=== PATIENT | female | born 1995 | race Caucasian/White ===

== ENCOUNTER 2017-04-22 19:35 | Emergency (ER) | payer OTHER ==
[2017-04-22 19:54] VITALS: BP 112/62; PULSE 83; TEMP 98.3; BMI 24.7
[2017-04-22 20:01] LABS: PH,URINE 5.5 (4.5-8); URINE APPEARANCE Clear; URINE BILIRUBIN Negative (NEGATIVE); URINE BLOOD 2+ (NEGATIVE); URINE COLOR YELLOW; URINE GLUCOSE (UA) Negative (NEGATIVE); URINE KETONE Trace (NEGATIVE); URINE LEUK ESTERASE Negative (NEGATIVE); URINE NITRITE Negative (NEGATIVE); URINE PROTEIN Negative (NEGATIVE); URINE UROBILINOGEN 0.2 (0.2-1.0)
--- NOTE | 2017-04-22 20:19 | PDOC ---
History of Present Illness - General History Source: Patient, Spouse - History of Present Illness Initial Comments: 04/22/17 20:20 21 y/o F (LMP: 8, ) with no PMHx presents to the ED with worsening vaginal pain for a few days. She states the pain does not radiate. Patient denies similar symptoms in the past. She also reports an irregular period. She denies history of trauma. Denies vaginal bleeding or discharge. She denies dysuria, hematuria. Denies nausea, vomiting. <Ronel Briones - Last Filed: 04/22/17 20:20> <Janiya Lewis - Last Filed: 04/22/17 20:39> - General Chief Complaint: Urinary Problem Stated Complaint: PAIN INSIDE VAGINA, DIFFICULTY URINATING Time Seen by Provider: 04/22/17 19:40 Past History <Ronel Briones - Last Filed: 04/22/17 20:20> - Past Medical History Other medical history: DENIES - Psycho/Social/Smoking Cessation Hx Anxiety: No Suicidal Ideation: No Smoking History: Never smoked Have you smoked in the past 12 months: No Information on smoking cessation initiated: No Hx Alcohol Use: No Drug/Substance Use Hx: No Substance Use Type: None <Janiya Lewis - Last Filed: 04/22/17 20:39> - Past Medical History Allergies/Adverse Reactions: Allergies Allergy/AdvReac Type Severity Reaction Status Date / Time No Known Allergies Allergy Verified 04/22/17 19:37 Home Medications: Ambulatory Orders Ibuprofen [Motrin -] 600 mg PO TID PRN #21 tablet 04/22/17 Review of Systems - Review of Systems Able to Perform ROS?: Yes Comments:: 04/22/17 20:20 GENERAL/CONSTITUTIONAL: No fever or chills. No weakness. HEAD, EYES, EARS, NOSE AND THROAT: No change in vision. No ear pain or discharge. No sore throat. CARDIOVASCULAR: No chest pain or shortness of breath. RESPIRATORY: No cough, wheezing, or hemoptysis. GASTROINTESTINAL: No nausea, vomiting, diarrhea or constipation. GENITOURINARY: (+) vaginal pain. No dysuria, frequency, or change in urination. MUSCULOSKELETAL: No joint or muscle swelling or pain. No neck or back pain. SKIN: No rash NEUROLOGIC: No headache, vertigo, loss of consciousness, or change in strength/ sensation. ENDOCRINE: No increased thirst. No abnormal weight change. HEMATOLOGIC/LYMPHATIC: No anemia, easy bleeding, or history of blood clots. ALLERGIC/IMMUNOLOGIC: No hives or skin allergy. <Ronel Briones - Last Filed: 04/22/17 20:20> *Physical Exam - Vital Signs Last Vital Signs Temp Pulse Resp BP Pulse Ox 98.3 F 83 16 112/62 97 04/22/17 19:38 04/22/17 19:38 04/22/17 19:38 04/22/17 19:38 04/22/17 19:38 <Ronel Briones - Last Filed: 04/22/17 20:20> - Vital Signs Last Vital Signs Temp Pulse Resp BP Pulse Ox 98.3 F 83 16 112/62 97 04/22/17 19:38 04/22/17 19:38 04/22/17 19:38 04/22/17 19:38 04/22/17 19:38 - Physical Exam Comments: GENERAL: Awake, alert, and fully oriented, in no acute distress HEAD: No signs of trauma EYES: PERRLA, EOMI, sclera anicteric, conjunctiva clear ENT: Auricles normal inspection, hearing grossly normal, nares patent, oropharynx clear without exudates. Moist mucosa NECK: Normal ROM, supple, no lymphadenopathy, JVD, or masses LUNGS: Breath sounds equal, clear to auscultation bilaterally. No wheezes, and no crackles HEART: Regular rate and rhythm, normal S1 and S2, no murmurs, rubs or gallops ABDOMEN: Soft, nontender, normoactive bowel sounds. No guarding, no rebound. No masses EXTREMITIES: Normal range of motion, no edema. No clubbing or cyanosis. No cords, erythema, or tenderness NEUROLOGICAL: Cranial nerves II through XII grossly intact. Normal speech, normal gait SKIN: Warm, Dry, normal turgor, no rashes or lesions noted. : No external lesions. Mild physiologic discharge. Cervix was mildly enlarged , erythematous, tender, with slightly ulcerated area posteriorly. Firm and tender to palpation. <Janiya Lewis - Last Filed: 04/22/17 20:39> ED Treatment Course - ADDITIONAL ORDERS Additional order review: Laboratory Results 04/22/17 04/22/17 19:43 19:43 Urine Color Yellow Urine Appearance Clear Urine pH 5.5 Ur Specific [place] >= 1.030 H Urine Protein Negative Urine Glucose (UA) Negative Urine Ketones Trace Urine Blood 2+ H Urine Nitrite Negative Urine Bilirubin Negative Urine Urobilinogen 0.2 Ur Leukocyte Esterase Negative Urine HCG, Qual Negative <Ronel Briones - Last Filed: 04/22/17 20:20> - ADDITIONAL ORDERS Additional order review: Laboratory Results 04/22/17 04/22/17 19:43 19:43 Urine Color Yellow Urine Appearance Clear Urine pH 5.5 Ur Specific [place] >= 1.030 H Urine Protein Negative Urine Glucose (UA) Negative Urine Ketones Trace Urine Blood 2+ H Urine Nitrite Negative Urine Bilirubin Negative Urine Urobilinogen 0.2 Ur Leukocyte Esterase Negative Urine HCG, Qual Negative <Janiya Lewis - Last Filed: 04/22/17 20:39> Medical Decision Making - Medical Decision Making 04/22/17 20:35 Additional history obtained during pelvic exam. Patient had a history of abnormal pap 5 years ago, had a biopsy that was reportedly normal (this was all done in [place]). She has followed up annually with her cryptologic linguist since then, no problems. I explained that her cervix is enlarged and appears abnormal. I an concerned that this may be related to the prior abnormal pap. I obtained a GC/ Chlamydia swab, however, I would be less concerned about this, more concerned that this may be a mass. I urged them to make cryptologic linguist appt as soon as possible. I gave information for all of the gynecologists in our system so that they can see who takes their insurance. Also, I gave information for [facility] clinic. <Janiya Lewis - Last Filed: 04/22/17 20:39> *DC/Admit/Observation/Transfer - Attestations Scribe Attestion: 04/22/17 20:21 Documentation prepared by Ronel Briones, acting as expert medical writer for Janiya Lewis MD. <Ronel Briones - Last Filed: 04/22/17 20:20> - Discharge Dispostion Admit: No <Janiya Lewis - Last Filed: 04/22/17 20:39> Diagnosis at time of Disposition: Vaginal pain - Discharge Dispostion Disposition: HOME Condition at time of disposition: Stable - Prescriptions Prescriptions: Ibuprofen [Motrin -] 600 mg PO TID PRN #21 tablet PRN Reason: Pain - Patient Instructions Printed Discharge Instructions: DI for Pelvic Pain Additional Instructions: Siga con el gineclogo lo antes posible. Cuando chris martha luis, mencione que fue visto en el departamento de emergencias. Amber motrin herman sea necesario para el dolor. Print Language: PERSIAN
[2017-04-22 20:26] LABS: URINE BACTERIA FEW /hpf (NEGATIVE); URINE RBC 0-2 /hpf (0-3)
== END 2017-04-22 20:32 | disposition home or self-care (01) ==
LOC: FER 19:35
DX: R10.2 Pelvic and perineal pain (principal)
CPT/HCPCS: 36415; 81003; 81015; 84703; 87491; 87591; 99281-25

== ENCOUNTER 2017-05-02 23:39 | Emergency (ER) | payer OTHER ==
[2017-05-02 23:43] VITALS: BP 115/66; PULSE 76; TEMP 98.6; BMI 24.7
--- NOTE | 2017-05-03 00:18 | PDOC ---
History of Present Illness - General Chief Complaint: Injury Stated Complaint: FALL INJURY Time Seen by Provider: 05/02/17 23:50 History Source: Patient Exam Limitations: No Limitations - History of Present Illness Initial Comments: This is a 21 yo female with h/o recently diagnosed enlarged cervix and (seen for vaginal pain in our ED) who presents with constant throbbing headache to the top of her head on both sides at 10/10 pain currently. She had a very mild headache for most of the day, but it became significantly worse suddenly at 10pm tonight. The pain is not worsened by light or noise, and does not radiate to the neck or anywhere else. She has not taken any medication for the pain. She additionally notes feeling dizzy and having difficulty balancing due to the dizziness, as well as nausea and one episode of vomiting. She notes numbness to the face, as well as chills. She denies any measured fever at home, any change in her normal mentation, focal weakness, incontinence of urine or bowel, abdominal pain, chest pain, painful urination, or other symptoms. She did measure her temperature at home about a week ago and found it to be 102.4, but states that her geotechnical engineer was not concerned about this d/t her recent diagnosis of cervicitis. She denies any chance that she may be and states her last menstrual period was on 04/11/17. She just moved to the from [place] about two months ago. Past History - Past Medical History Allergies/Adverse Reactions: Allergies Allergy/AdvReac Type Severity Reaction Status Date / Time No Known Allergies Allergy Verified 05/02/17 23:43 Home Medications: Ambulatory Orders Ibuprofen [Motrin -] 600 mg PO TID PRN #21 tablet 04/22/17 Other medical history: denies - Psycho/Social/Smoking Cessation Hx Anxiety: No Suicidal Ideation: No Smoking History: Never smoked Have you smoked in the past 12 months: No Hx Alcohol Use: No Drug/Substance Use Hx: No Substance Use Type: None Review of Systems - Review of Systems Able to Perform ROS?: Yes Constitutional: Yes: Chills, Fever. No: Unexplained wgt Loss HEENTM: No: Nose Congestion, Throat Pain Respiratory: No: Cough, Shortness of Breath Cardiac (ROS): No: Chest Pain, Palpitations ABD/GI: Yes: Nausea, Vomiting. No: Constipated, Diarrhea : No: Burning, Dysuria Musculoskeletal: No: Back Pain, Neck Pain Integumentary: No: Bruising, Rash Neurological: Yes: Headache, Numbness, Dizziness. No: Weakness Endocrine: No: Unexplained Weight Gain, Unexplained Weight Loss *Physical Exam - Vital Signs Last Vital Signs Temp Pulse Resp BP Pulse Ox 98.6 F 76 18 115/66 99 05/02/17 23:40 05/02/17 23:40 05/02/17 23:40 05/02/17 23:40 05/02/17 23:40 - Physical Exam General Appearance: Yes: Nourished, Appropriately Dressed HEENT: positive: EOMI, DELMI, Normal Voice, Hearing Grossly Normal, Other (mild bilateral scleral injection). negative: Scleral Icterus (R), Scleral Icterus (L ), Nasal Congestion Neck: positive: Trachea midline, Supple. negative: Tender, Rigid Respiratory/Chest: positive: Lungs Clear, Normal Breath Sounds. negative: Respiratory Distress, Crackles, Rhonchi, Stridor, Wheezing Cardiovascular: positive: Regular Rhythm, Regular Rate. negative: Murmur Gastrointestinal/Abdominal: positive: Normal Bowel Sounds, Soft. negative: Tender, Organomegaly, Pulsatile Mass, Guarding Musculoskeletal: positive: Normal Inspection. negative: Decreased Range of Motion, Vertebral Tenderness Extremity: positive: Normal Capillary Refill, Normal Inspection, Normal Range of Motion. negative: Tender, Cyanosis Integumentary: positive: Normal Color, Dry, Warm. negative: Erythema, Rash, Bruising Neurologic: positive: inspector outside steam distribution II-XII NML intact, Fully Oriented, Alert, Normal Mood/ Affect, Normal Response, Motor Strength 5/5, Finger to Nose (normal), Other ( patient with horizonal nystagmus on extreme lateral gaze). negative: EOM Palsy , Facial Droop, Numbness, Sensory Deficit, Confused, Disoriented ED Treatment Course - LABORATORY CBC & Chemistry Diagram: 05/03/17 00:27 05/03/17 00:27 - RADIOLOGY Radiology Studies Ordered: 05/03/17 03:[address] WO contrast preliminary interpretation as normal study. Medical Decision Making - Medical Decision Making 21 YOF with h/o recently diagnosed enlarged cervix p/w 10/ throbbing headache , dizziness, vomiting x1. Recently diagnosed with enlarged cervix thought to be a mass here in our ED, referred to NIGHT AUDITOR. DDX includes metastasis or other intracranial lesion, migraine, tension SCHMIDT, vertigo related to viral syndrome. Ordered is CBCD, CMP, Mg, Phos, Head CT WO contrast. Pt's lab work and head CT are unremarkable. She is given Tylenol for headache. Symptoms are well controlled and she is appropriate for close outpatient followup. Return precautions are discussed and she will f/u as OP or return to ED as needed. *DC/Admit/Observation/Transfer Diagnosis at time of Disposition: Headache Qualifiers: Headache type: unspecified Headache chronicity pattern: acute headache Intractability: not intractable Qualified Code(s): R51 - Headache - Discharge Dispostion Disposition: HOME Condition at time of disposition: Stable Admit: No - Patient Instructions Printed Discharge Instructions: DI for Headache Additional Instructions: You were seen in the ED tonight for a headache. We did lab work on your blood and urine, and the results were normal. We also did a head CT scan which was normal. We gave you Tylenol for pain. Please take 5 days off of work and return to work on Friday. Take Tylenol and Motrin for the headache, and follow up with your regular doctor. You can also return to the emergency room if you have any new or worsening symptoms like fever, vision loss, one-sided weakness, or difficulty walking. - Post Discharge Activity Work/School Note: Back to Work
[2017-05-03 00:49] LABS: BASOPHIL 0.5 % (0-2.0); MCH 32.2 pg (25.7-33.7); MCHC 34.7 g/dl (32.0-36.0); MEAN CELL VOLUME 92.8 fl (80-96); MEAN PLT VOLUME 9.8 fl (7.5-11.1); NEUTROPHILS 57.4 % (42.8-82.8); PLATELET COUNT 204 K/MM3 (134-434); RDW 12.8 % (11.6-15.6); WHITE BLOOD COUNT 7.6 K/mm3 (4.0-10.0)
[2017-05-03 01:07] LABS: URINE APPEARANCE CLEAR; URINE BILIRUBIN NEGATIVE (NEGATIVE); URINE BLOOD TRACE-INTA (NEGATIVE); URINE COLOR LT. YELLOW; URINE GLUCOSE (UA) NEGATIVE (NEGATIVE); URINE KETONE NEGATIVE (NEGATIVE); URINE LEUK ESTERASE NEGATIVE (NEGATIVE); URINE NITRITE NEGATIVE (NEGATIVE); URINE PROTEIN NEGATIVE (NEGATIVE); URINE UROBILINOGEN 0.2 mg/dL (0.2-1.0)
[2017-05-03 01:21] LABS: ALBUMIN 3.9 g/dl (3.4-5.0); ALK PHOS 62 U/L (45-117); ANION GAP 6 (8-16); BILIRUBIN,TOTAL 0.4 mg/dL (0.2-1.0); CALCIUM 8.3 mg/dL (8.5-10.1); CO2 29 mmol/L (21-32); CREATININE 0.6 mg/dL (0.55-1.02); GLUCOSE,RANDOM 94 mg/dL (74-106); MAGNESIUM 2.1 mg/dL (1.8-2.4); PHOSPHOROUS 3.9 mg/dL (2.5-4.9); SGOT/AST 7 U/L (15-37); SGPT/ALT 15 U/L (12-78); TOT PROT 6.8 g/dl (6.4-8.2)
[2017-05-03] MEDS ORDERED: SUMAtriptan SUCCINATE 25 MG TABLET PO ONE (03:48)
[2017-05-03] MEDS ORDERED: ACETAMINOPHEN 500 MG TABLET (FP) PO ONE (03:57)
[2017-05-03] MEDS ORDERED: ACETAMINOPHEN 325 MG TABLET (FP) ONE (04:05)
== END 2017-05-03 04:11 | disposition home or self-care (01) ==
LOC: JER 23:39
DX: R51 Headache (principal); N88.8 Other specified noninflammatory disorders of cervix uteri
CPT/HCPCS: 36415; 70450-TC; 80053; 81003; 83735; 84100; 84703; 85025; 99281-25

== ENCOUNTER 2017-09-17 13:06 | Emergency (ER) | payer OTHER ==
[2017-09-17 13:13] VITALS: BP 106/63; PULSE 88; TEMP 98.3; BMI 23.2
== END 2017-09-17 14:08 | disposition left against medical advice (07) ==
LOC: JER 13:06
DX: Z53.21 Procedure and treatment not carried out due to patient leaving prior to being seen by health care provider (principal)
CPT/HCPCS: 99281-25

== ENCOUNTER 2017-09-24 13:10 | Emergency (ER) | payer OTHER ==
[2017-09-24 13:18] VITALS: BP 105/58; PULSE 93; TEMP 98.8; BMI 23.9
--- NOTE | 2017-09-24 15:54 | PDOC ---
History of Present Illness - General Chief Complaint: Ear Problem Stated Complaint: RT EAR PAIN Time Seen by Provider: 09/24/17 15:41 History Source: Patient Exam Limitations: No Limitations - History of Present Illness Initial Comments: 09/24/17 15:47 Patient is a 22-year-old female, denies any significant medical history currently on no medication patient reports three-day history of cough and cold- like symptoms, increased nasal congestion today started with right ear pain described as stabbing, 10 out of 10. Tactile fever. Patient reports that she is breast-feeding, concerned of medications that she may receive. Past Medical History: [Denies]. Allergies: No known allergies Medications: [None] Family History: Non-contributory Social History: Denies smoking, alcohol use, or IVDU Review of Systems GENERAL/CONSTITUTIONAL: [No fever or chills. No weakness. No weight change.] HEAD, EYES, EARS, NOSE AND THROAT: [No change in vision. Nasal congestion, right ear pain. No sore throat. ] CARDIOVASCULAR: [No chest pain or shortness of breath.] RESPIRATORY: [No cough, wheezing, or hemoptysis.] GASTROINTESTINAL: [No nausea, vomiting, diarrhea or constipation. No rectal bleeding.] GENITOURINARY: [No dysuria, frequency, or change in urination.] MUSCULOSKELETAL: [No joint or muscle swelling or pain. No neck or back pain.] SKIN AND BREASTS: [No rash or easy bruising.] NEUROLOGIC: [No headache, vertigo, loss of consciousness, or loss of sensation.] PSYCHIATRIC: [No depression or anxiety.] ENDOCRINE: [No increased thirst. No abnormal weight change.] HEMATOLOGIC/LYMPHATIC: [No anemia, easy bleeding, or history of blood clots.] ALLERGIC/IMMUNOLOGIC: [No hives or skin allergy. No latex allergy.] Physical Exam: GENERAL: [The patient is awake, alert, and fully oriented, in no acute distress. ] HEAD: [Normal with no signs of trauma.] EYES: [Pupils equal, round and reactive to light, extraocular movements intact, sclera anicteric, conjunctiva clear.] ENT: [Right TM is erythematous, bulging with fluid, nares patent, oropharynx clear without exudates. Moist mucous membranes. No uvula deviation] NECK: [Normal range of motion, supple without lymphadenopathy, JVD, or masses.] LUNGS: [Breath sounds equal, clear to auscultation bilaterally. No wheezes, and no crackles.] HEART: [Regular rate and rhythm, normal S1 and S2 without murmur, rub or gallop. ] ABDOMEN: [Soft, nontender, normoactive bowel sounds. No guarding, no rebound. No masses. No bruising or abrasions] MUSCULOSKELETAL: [Normal range of motion, no edema. No clubbing or cyanosis. No cords, erythema, or tenderness. No CVA Tenderness with fist.] NEUROLOGICAL: [Cranial nerves II through XII grossly intact. Normal speech, normal gait.] PSYCH: [Normal mood, normal affect.] SKIN: [Warm, Dry, normal turgor, no rashes or lesions noted.] Past History - Past Medical History Allergies/Adverse Reactions: Allergies Allergy/AdvReac Type Severity Reaction Status Date / Time No Known Allergies Allergy Verified 09/17/17 13:12 Home Medications: Ambulatory Orders Amox-Tr/K Cl [Augmentin - 875Mg Tablet] 1 tab PO BID #14 tablet 09/24/17 Ondansetron [Zofran Odt -] 4 mg SL TID #10 od.tablet 09/24/17 Asthma: Yes CVA: No COPD: No DVT: No Dementia: No - Suicide/Smoking/Psychosocial Hx Smoking History: Never smoked Have you smoked in the past 12 months: No Hx Alcohol Use: No Drug/Substance Use Hx: No Substance Use Type: None *Physical Exam - Vital Signs Last Vital Signs Temp Pulse Resp BP Pulse Ox 98.8 F 93 H 18 105/58 99 09/24/17 13:15 09/24/17 13:15 09/24/17 13:15 09/24/17 13:15 09/24/17 13:15 Medical Decision Making - Medical Decision Making 09/24/17 15:52 A/P: Patient here with acute otitis media, DC patient on Augmentin. Patient also complaining of nausea since year pain started, patient is breast-feeding her daughter is a urinary half old only breast-feeds at night I explained to her that I can give her Zofran however caution must be used at breast-feeding I have given her the option to take it and hold off on breast-feeding. Will give Augmentin which is safe in breast-feeding. *DC/Admit/Observation/Transfer Diagnosis at time of Disposition: Otitis media Qualifiers: Otitis media type: unspecified Chronicity: acute Qualified Code(s): H66.90 - Otitis media, unspecified, unspecified ear - Discharge Dispostion Disposition: HOME Condition at time of disposition: Stable Admit: No - Prescriptions Prescriptions: Amox-Tr/K Cl [Augmentin - 875Mg Tablet] 1 tab PO BID #14 tablet Ondansetron [Zofran Odt -] 4 mg SL TID #10 od.tablet - Referrals - Patient Instructions Printed Discharge Instructions: DI for Otitis Media (Middle Ear Infection)- Child Additional Instructions: Increase fluids to prevent dehydration Motrin for fever greater than 101.0 Please take antibiotics as ordered, I have also prescribed Zofran for nausea please use caution with breast-feeding when taking Zofran, antibiotic, Augmentin safe with breast feeding. Please followup with primary care in 3 days if symptoms persist Return to emergency department any increased cough, fever, inability to drink or other concerns - Post Discharge Activity Forms/Work/School Notes: Back to Work
== END 2017-09-24 15:58 | disposition home or self-care (01) ==
LOC: JERFT 13:10
DX: H66.91 Otitis media, unspecified, right ear (principal)
CPT/HCPCS: 99281-25